=== PATIENT | male | born 1975 | race Caucasian/White ===

== ENCOUNTER 2022-10-29 17:51 | Emergency (ER) | payer OTHER ==
[~2022-10-29] VITALS: Ht 165.1 cm; Wt 113.4 kg
[2022-10-29 18:03] VITALS: BP 131/84; PULSE 95; RESP 20; TEMP 98.7; O2SAT 98
[2022-10-29 18:44] VITALS: BP 130/82; PULSE 96; RESP 20; TEMP 98.7; O2SAT 98
== END 2022-10-29 18:44 ==
LOC: MED 17:51
DX: K43.9 Ventral hernia without obstruction or gangrene; Z79.899 Other long term (current) drug therapy
CPT/HCPCS: 99283